=== PATIENT | male | born 1985 | race Caucasian/White ===

== ENCOUNTER → 2022-05-13 | Outpatient (CLI) | payer MEDICAID ==
[~2022-05-13] MED LIST: ALBU2.5V2 IH; CALC-590 PO; CARB200T6 PO; DIVA-80 PO; PHEN15TA PO; SENN-277 PO
== END | disposition home or self-care (01) ==
LOC: RADPV 13:49
PROVIDERS: ATTEND Internal Medicine
DX: M81.8 Other osteoporosis without current pathological fracture (principal); M85.88 Other specified disorders of bone density and structure, other site; Z13.820 Encounter for screening for osteoporosis; M41.06 Infantile idiopathic scoliosis, lumbar region
CPT/HCPCS: 77080